=== PATIENT | male | born 1960 | race Caucasian/White ===

== ENCOUNTER 2023-12-09 15:23 | Inpatient (IN) | payer OTHER ==
[~2023-12-09] VITALS: Ht 170.2 cm; Wt 52.8 kg
[~2023-12-09 15:23] MED LIST: ACET500 PO; ALBU2.5V5 INH; B-12500 MC2 PO; CELE100 PO; FOLI1 PO; LISI20 PO; OXYC5 PO; PRED20 PO; STIOLTO RESPIMAT4 G1 INH; TAMS.4ER PO; Vitamin D1000 UNI1 PO; XARELTO20 MG PO; ZESTORETIC 20-1 EACH PO
[2023-12-09] MEDS ORDERED: Ondansetron Odt8 MG MM (15:46)
[2023-12-09 16:14] LABS: Albumin, Blood 2.1 g/dL (3.4-5.0); Albumin/Globulin Ratio 0.8 (0.8-1.8); Bilirubin, Total 0.3 mg/dL (0.1-1.0); Calcium, Blood 7.9 mg/dL (8.5-10.1); Creatinine, Blood 0.79 mg/dL (0.60-1.20); Globulin, Blood 2.8 g/dL (2.2-4.0); Potassium, Blood 3.9 mmol/L (3.5-5.5); Total Protein, Blood 4.9 g/dL (6.4-8.2)
[2023-12-09] MEDS ORDERED: NS 1,000 ML IV SCH (16:30)
[2023-12-09 16:53] LABS: BASOPHILS ABSOLUTE AUTO 0.02 K/mm3 (0.00-0.23); BASOPHILS PERCENT AUTO 0 % (0-2); EOSINOPHILS ABSOLUTE AUTO 0.52 K/mm3 (0.00-0.68); EOSINOPHILS PERCENT AUTO 4 % (0-6); Hematocrit 21.8 % (37.0-53.0); Hemoglobin 7.2 g/dL (13.5-17.5); IMMATURE GRAN ABSOLUTE AUTO 0.09 K/mm3 (0.00-0.10); IMMATURE GRAN PERCENT AUTO 1 % (0-1); LYMPHOCYTES ABSOLUTE AUTO 1.22 K/mm3 (0.84-5.20); LYMPHOCYTES PERCENT AUTO 10 % (21-46); MONOCYTES ABSOLUTE AUTO 2.21 K/mm3 (0.16-1.47); MONOCYTES PERCENT AUTO 18 % (4-13); Mean Corpuscular HGB 34.4 pg (26.0-34.0); Mean Corpuscular Volume 104 fL (80-100); NEUTROPHILS ABSOLUTE AUTO 8.39 K/mm3 (1.96-9.15); NEUTROPHILS PERCENT AUTO 67 % (41-73); RDW Coefficient Variation 14.2 % (11.7-14.2); RDW Standard Deviation 53.8 fL (35.1-46.3); Red Blood Cell Count 2.09 M/mm3 (4.30-5.90); White Blood Cell Count 12.45 K/mm3 (4.00-11.30)
[2023-12-09 17:23] LABS: Mean Platelet Volume 13.3 fL (9.1-12.4)
[2023-12-09 17:24] LABS: Platelet Count 39 K/mm3 (150-400)
[2023-12-09 18:48] LABS: Base Excess Venous 0.4 mmol/L; Bicarbonate Venous 24.6 mmol/L (24.0-30.0); PCO2 Venous 50.1 mmHg (38-42); pH Blood Venous 7.33 (7.34-7.37)
[2023-12-09] MEDS ORDERED: Albuterol 2.5 MG/3 ML VIAL INH ONE (19:00)
[2023-12-09] MEDS ORDERED: Ondansetron HCl 2 MG / ML 2ML Vial IV PRN (19:15)
[2023-12-09] MEDS ORDERED: Albuterol 2.5 MG/3 ML VIAL INH PRN (19:20)
[2023-12-09] MEDS ORDERED: Ipratropium/Albuterol SulF 2.5-0.5MG/3 ML Amp INH SCH (19:20)
[2023-12-09] MEDS ORDERED: Acetaminophen 325 MG TABLET PO PRN (19:20)
[2023-12-09 19:43] LABS: Percent Saturation 8.3 % (20.0-50.0)
[2023-12-09 19:45] LABS: International Normalized Ratio 1.21; Prothrombin Time Results 12.8 Sec (9.7-11.5)
[2023-12-09] MEDS ORDERED: MethylPREDNISolone Sod Succ 125 MG Vial IV SCH (20:00)
[2023-12-09] MEDS ORDERED: Azithromycin 500 MG in NS 250 ML IV SCH (20:00)
[2023-12-09 21:17] VITALS: BP 109/73
[2023-12-09 23:19] LABS: PCO2 Venous 43.3 mmHg (38-42); pH Blood Venous 7.37 (7.34-7.37)
[2023-12-09 23:20] LABS: Base Excess Venous -0.1 mmol/L; Bicarbonate Venous 24.3 mmol/L (24.0-30.0)
[2023-12-09] MEDS ORDERED: ALBU90OI INH (23:46)
[2023-12-09] MEDS ORDERED: DECADRON4 M1 PO (23:48)
[2023-12-10] VITALS (21 sets, daily range): BP systolic 91–122; BP diastolic 66–80
[2023-12-10 04:50] LABS: Hematocrit 24.1 % (37.0-53.0); Hemoglobin 7.7 g/dL (13.5-17.5); Mean Corpuscular HGB 34.7 pg (26.0-34.0); RDW Coefficient Variation 14.3 % (11.7-14.2); RDW Standard Deviation 57.1 fL (35.1-46.3); Red Blood Cell Count 2.22 M/mm3 (4.30-5.90); White Blood Cell Count 9.76 K/mm3 (4.00-11.30)
[2023-12-10 04:54] LABS: Base Excess Venous 1.9 mmol/L; Bicarbonate Venous 26.2 mmol/L (24.0-30.0); PCO2 Venous 32.6 mmHg (38-42)
[2023-12-10 05:02] LABS: Mean Corpuscular Volume 109 fL (80-100)
[2023-12-10 05:04] LABS: Platelet Count 27 K/mm3 (150-400)
[2023-12-10 05:07] LABS: Bun/Creatinine Ratio 35.2 (12.0-20.0); Calcium, Blood 8.2 mg/dL (8.5-10.1); Creatinine, Blood 0.6 mg/dL (0.60-1.20); Potassium, Blood 4.2 mmol/L (3.5-5.5)
--- NOTE | 2023-12-10 06:54 | NUR ---
SHIFT SUMMARY NOC PT A/O X 2-3. FORGETFUL AND CONFUSED AT TIMES, ESPECIALLY WHEN 02 IS REMOVED AND PT DESATS INTO 70'S. PT ON 3L/NC BASELINE, NOW ON 5L/NC TO MAINTAIN SPO2 >92 ON BIOX. ADMIT FROM ED WITH ARF WITH HYPOXIA. PT HAD RECENT PLEUREX CATHETER IN L SIDE THAT PT PULLED WHEN CONFUSED. PT HAS MODERATE L HYDROPNEUMOTHORAX WITH PLEURAL EFFUSION. PT SCEDULED TO HAVE NEW PLEUREX CATHETER PLACED BY DR LANGLEY TODAY AND HAS BEEN NPO SINCE MIDNIGHT IN PREPARATION. PT HAS RECENT DX OF SMALL CELL CARCINOMA LUNG CANCER. PT XARELTO TO BE HELD TODAY FOR PROCEDURE AND SCD'S IN PLACE FOR DVT PROPHYLAXIS. PER ED REPORT PT IS INC OF URINE AND UNSURE OF BM, PT REPORTS NO INCONTINENCE, BUT ATTENDS IN PLACE. PT ALSO HAS ECHO SCHEDULED FOR TODAY. PT CURRENTLY RESTING WITH BED ALARM ON, BED IN LOWEST POSITION AND CALL LIGHT WITHIN REACH.
--- NOTE | 2023-12-10 07:28 | NUR ---
BEGINNING OF SHIFT NOTE: PATIENT A/OX3, IRRIITABLE, AND WANTING TO EAT. PATIENT REPORTS HE HAS NOT EATEN FOR 2 DAYS. PATIENT IS NPO PLAN TO HAVE PLEURIX DRAIN PLACEMENT THIS AM BY DR. LANGLEY. RECEIVED REPORTS FRON NOC RN, BRIDGETT. PER BRIDGETT PATIENT DRANK BLACK COFFEE ABOUT 240 CC AT AROUND 0430. THIS RN NOTIFIED DR. LANGLEY REGARDING THIS CONCERNED. PER DR. LANGLEY CONTINUE TO KEEP PATIENT NPO FOR NOW.
[2023-12-10] MEDS ORDERED: OxyCODONE HCL 5 MG TAB PO SCH (09:00)
[2023-12-10] MEDS ORDERED: Folic Acid 1 MG TAB PO SCH (09:00)
[2023-12-10] MEDS ORDERED: Tamsulosin HCl 0.4 MG Cap PO SCH (09:00)
[2023-12-10 13:19] LABS: U Amphetamine Screen Not Detected; U Barbituate Screen Not Detected; U Benzodiazapine Screen Not Detected; U Buprenorphine Screen Not Detected; U Cannabinoids Screen Not Detected; U Cocaine Screen Not Detected; U Methadone Screen Not Detected; U Methamphetamine Screen Not Detected; U Opiates Screen Not Detected; U Oxycodone Screen DETECTED; U Phencyclidine Screen Not Detected
--- NOTE | 2023-12-10 13:19 | NUR ---
THIS RN PROVIDING BREAK COVERAGE FOR PRIMARY NURSE TODAY.
[2023-12-10] MEDS ORDERED: NS 500 ML IV SCH (14:00)
[2023-12-10] MEDS ORDERED: NS 1,000 ML IV SCH (15:30)
--- NOTE | 2023-12-10 15:43 | NUR ---
NOTES: PATIENT LEFT THE ROOM AT THIS TIME TO DAY SURGERY.
[2023-12-10] MEDS ORDERED: Bupivacaine 0.5% HCl 5 MG/ML 30MLVIAL ONE (15:51)
--- NOTE | 2023-12-10 16:00 | NUR ---
SUPPORTIVE VISIT PT IS KNOWN TO THIS PC RN FROM HIS LAST HOSPITAL ADMISSION. BRYANT IS NOT GIVING CLEAR ANSWERS. UNKNOWN WHAT MONTH, DAY OR TIME OF DAY IT IS. HE KNOWS WHERE HE IS AND WHY HE IS HERE. PT STS, "DINNER SHOULD BE HERE SOON. I HAVEN'T EATEN IN 2 DAYS AND THEY ARE LETTING ME EAT NOW. THEY GOT MAD AT ME FOR HAVING SOME COFFEE THIS MORNING." BRYANT HAD TO BE REMINDED OF HIS UPCOMING PROCEDURE TO REPLACE THE PLUREX DRAIN HE ACCIDENTALLY PULLED OUT. HIS RESPONSE TO REORIENTATION OF PENDING PROCEDURE WAS, "OH YA." BRYANT TALKS ABOUT HIS FIRST TWO DAYS OF CHEMO TX. HE DENIES ADVERSE CHEMO REACTIONS AND NOT SURE WHY HE PULLED THE PLUREX DRAIN TUBE. BRYANT WANTS TO CONTINUE WITH CURRENT TREATMENT PLAN. "I'M NOT READY TO YET." PC TO REMAIN AVAILABLE NEEDED.
--- NOTE | 2023-12-10 16:01 | NUR ---
INTO [facility] VIA GURNEY. HISTORY AND ALLERGIES REVIEWED. LUNGS DIMINISHED T/O LEFT. PT HAD DUONEB JUST PRIOR TO ARRIVAL IN [facility]. PT SOB WITH EXERTION. RR 26-30. SATS>90% ON 2 LITERS NASAL CANULA. NPO STATUS CONFIRMED. PT HAS 1 UNIT PRBC'S TRANSFUSING.
[2023-12-10] MEDS ORDERED: propofoL 20 ML IV ONE (16:11)
[2023-12-10] MEDS ORDERED: Sodium Chloride 0.9% Inj 10 ML IV ONE (16:14)
[2023-12-10] MEDS ORDERED: Ketamine HCl 100 MG / ML 5ML Vial ONE (16:14)
--- NOTE | 2023-12-10 16:15 | NUR ---
RAC #20 PIV INFUSING 1 UNIT PRBCS.HOWEVER, IV SLIGHTLY POSITIONAL.
--- NOTE | 2023-12-10 16:57 | NUR ---
12/10/23 1657 Alana Jones 800ML DRAINED OUT OF PLEURX CATHETER
[2023-12-10] MEDS ORDERED: FentaNYL Citrate 50 MCG/ML 2 ML Injection ONE (17:00)
[2023-12-10 18:52] LABS: BASOPHILS ABSOLUTE AUTO 0.02 K/mm3 (0.00-0.23); BASOPHILS PERCENT AUTO 0 % (0-2); EOSINOPHILS ABSOLUTE AUTO 0.01 K/mm3 (0.00-0.68); EOSINOPHILS PERCENT AUTO 0 % (0-6); IMMATURE GRAN ABSOLUTE AUTO 0.11 K/mm3 (0.00-0.10); IMMATURE GRAN PERCENT AUTO 1 % (0-1); LYMPHOCYTES ABSOLUTE AUTO 0.45 K/mm3 (0.84-5.20); LYMPHOCYTES PERCENT AUTO 4 % (21-46); MONOCYTES ABSOLUTE AUTO 0.53 K/mm3 (0.16-1.47); MONOCYTES PERCENT AUTO 4 % (4-13); NEUTROPHILS ABSOLUTE AUTO 11.48 K/mm3 (1.96-9.15); NEUTROPHILS PERCENT AUTO 91 % (41-73)
--- NOTE | 2023-12-10 19:13 | NUR ---
SHIFT SUMMARY: PATIENT A/X3, CONFUSED TO DATES/TIMES, FORGETFUL, PLEASANT AND COOPERATIVE c CARE. PATIENT HAD ECHO DONE THIS AM c RESULT. PATIENT DENIES CP/PRESSURE, DIZZINESS AND N/V. ON TELE, SR HR IN THE 90'S BPM. PATIENT O2 AT BASELINE 2-3L c SPO2 RANGES 95-100%. PLEURIX CATHETER PLACEMENT TO L SIDE DONE BY DR. LANGLEY. PATIENT BACK IN ROOM VIA GURNEY AT 1755 FROM PACU. RECEIVED REPORT FROM TRISH LI 1 PRBC COMPLETED AT 1715, 800 MLS OF FLUIDS DRAIN FROM PLEURIX CATHETER, DRESSING TO L SIDE HAS A TINY AMT OF BLOOD AND HAS NOT CHANGED, DRESSING INTACT. PATIENT REPORTS SLIGHT DISCOMFORT TO SITE. POST-OP VITALS TAKEN. PIV TO RAC INFUSING IV ABX AT THIS TIME. SCD'S TO BLE'S IN PLACED. BED ALARM ON FOR SAFETY. CALL LIGHT IN REACH.
[2023-12-11 04:03] VITALS: BP 121/71
--- NOTE | 2023-12-11 04:55 | NUR ---
NOC Shift Summary Pt received a new PleruX cath yesterday. Minimal drainage at site remains unchanged since surgery. Mild soreness relieved with tylenol. Pt continues to experience some confusion at times but reorients easily. Needs reminders to keep on continuous monitoring. Bed alarm on at all times: pt does not call before attempting to get up to the bathroom. requiring 2L O2 while awake, 3L O2 with sleep. Pt expresses frustration with still being in the hospital and that he "wants to go home".
[2023-12-11 05:29] LABS: Bun/Creatinine Ratio 38.8 (12.0-20.0); Calcium, Blood 8.4 mg/dL (8.5-10.1); Creatinine, Blood 0.67 mg/dL (0.60-1.20); Potassium, Blood 4.2 mmol/L (3.5-5.5)
[2023-12-11 07:42] VITALS: BP 123/73
[2023-12-11 09:20] LABS: BASOPHILS ABSOLUTE AUTO 0.01 K/mm3 (0.00-0.23); BASOPHILS PERCENT AUTO 0 % (0-2); EOSINOPHILS PERCENT AUTO 0 % (0-6); Hematocrit 26.8 % (37.0-53.0); Hemoglobin 8.9 g/dL (13.5-17.5); IMMATURE GRAN ABSOLUTE AUTO 0.28 K/mm3 (0.00-0.10); IMMATURE GRAN PERCENT AUTO 1 % (0-1); LYMPHOCYTES ABSOLUTE AUTO 0.78 K/mm3 (0.84-5.20); LYMPHOCYTES PERCENT AUTO 4 % (21-46); MONOCYTES ABSOLUTE AUTO 2.51 K/mm3 (0.16-1.47); MONOCYTES PERCENT AUTO 11 % (4-13); Mean Corpuscular HGB 33.2 pg (26.0-34.0); Mean Corpuscular HGB Conc 33.2 g/dL (31.5-36.5); NEUTROPHILS ABSOLUTE AUTO 18.36 K/mm3 (1.96-9.15); NEUTROPHILS PERCENT AUTO 84 % (41-73); RDW Coefficient Variation 19.5 % (11.7-14.2); RDW Standard Deviation 70.2 fL (35.1-46.3); Red Blood Cell Count 2.68 M/mm3 (4.30-5.90); White Blood Cell Count 21.94 K/mm3 (4.00-11.30)
[2023-12-11 09:24] LABS: Mean Corpuscular Volume 100 fL (80-100)
[2023-12-11 09:25] LABS: Platelet Count 20 K/mm3 (150-400)
[2023-12-11] MEDS ORDERED: HyDROXyzine HCl 25 MG Tab PO PRN (11:00)
[2023-12-11 15:45] VITALS: BP 111/81
--- NOTE | 2023-12-11 15:55 | NUR ---
DAYSHIFT SUMMARY Patient alert & oriented x2, disoriented to time/situation. This AM he requested breathing tx, appeared very anxious. He had another episode of anxiety this afternoon, he climbed out of bed, removed O2 NC, and sats dropped. RN able to redirect and get him back in bed, high fowlers positoned O2 NC back on. MD ordered HYdroxyzine for anxiety, PRN effective. IV Solumedrol adminsitred. S/p left pleurex drain, dressing has scant amt of bright red blood, dressing intact. Vitals stable. Will continue plan of care, awaiting discharge planning.
--- NOTE | 2023-12-11 17:16 | NUR ---
MET WITH BRYANT TO ASSESS COMFORT. HE REPORTED THAT HE WAS FEELING BETTER. HE WAS NOT EXPERIENCING MUCH DISCOMFORT, REPORTED HE HAD BEEN SLEEPING AND EATING WELL. I DISCUSSED THIS CASE WITH RT AND WITH BEDSIDE RN WHO REPORTED BRYANT HAD BEEN CONFUSED. I SPOKE WITH WILMA CREWS ON THE PHONE. SHE REPOIRTED THAT HE HAD BEEN INTERMITENTLY CONFUSED AT HOME AND HAD WANDERED OUTSIDE IN THE MIDDLE OF THE NIGHT AND SHE FOUND HIM HUGGING BLACKBERRY BUSHED TO TRY TO KEEP WARM. I PRAISED HER FOR HER DEDICATION TO CARING FOR HIM AND AKNOWLEDGED THE DIFFICULTY OF HER SITUATION. WE DISCUSSED POSSIBLE OUTCOMES FOR BRYANT DURING THIS HOSPITILIZATION. WE ARE AWAITING ONCOLOGY TO VISIT TO HAVE SOME DIRECTION ON HOW TO PROCEED WITH CARE. PATIENTS MOTHER IS OPEN TO HOSPICE IF HE CONTINUES TO DECLINE AND IF THATS WHAT THE CARE TEAM RECOMENDS. I RELAYED THIS TO PROVIDER.
[2023-12-11 20:48] VITALS: BP 115/80
[2023-12-12] MEDS ORDERED: Melatonin 3 MG Tab PO PRN (01:20)
[2023-12-12 05:08] LABS: BASOPHILS ABSOLUTE AUTO 0.03 K/mm3 (0.00-0.23); BASOPHILS PERCENT AUTO 0 % (0-2); EOSINOPHILS ABSOLUTE AUTO 0.37 K/mm3 (0.00-0.68); EOSINOPHILS PERCENT AUTO 2 % (0-6); Hematocrit 26.5 % (37.0-53.0); Hemoglobin 8.7 g/dL (13.5-17.5); IMMATURE GRAN ABSOLUTE AUTO 0.44 K/mm3 (0.00-0.10); IMMATURE GRAN PERCENT AUTO 2 % (0-1); LYMPHOCYTES PERCENT AUTO 8 % (21-46); MONOCYTES ABSOLUTE AUTO 3.54 K/mm3 (0.16-1.47); MONOCYTES PERCENT AUTO 14 % (4-13); Mean Corpuscular HGB 33.3 pg (26.0-34.0); Mean Corpuscular HGB Conc 32.8 g/dL (31.5-36.5); Mean Corpuscular Volume 102 fL (80-100); NEUTROPHILS ABSOLUTE AUTO 18.23 K/mm3 (1.96-9.15); NEUTROPHILS PERCENT AUTO 74 % (41-73); NRBC ABSOLUTE 0.02 K/mm3 (0.00-0.02); NRBC Auto 0.1 /100 WBC (0.0-0.2); RDW Coefficient Variation 18.9 % (11.7-14.2); RDW Standard Deviation 70.5 fL (35.1-46.3); Red Blood Cell Count 2.61 M/mm3 (4.30-5.90); White Blood Cell Count 24.61 K/mm3 (4.00-11.30)
[2023-12-12 05:21] LABS: Platelet Count 21 K/mm3 (150-400)
[2023-12-12 05:28] LABS: Bun/Creatinine Ratio 49.5 (12.0-20.0); Calcium, Blood 8.6 mg/dL (8.5-10.1); Creatinine, Blood 0.55 mg/dL (0.60-1.20); Potassium, Blood 3.9 mmol/L (3.5-5.5)
[2023-12-12 05:44] VITALS: BP 117/79
--- NOTE | 2023-12-12 06:31 | NUR ---
SHIFT SUMMARY: Pt is admitted for CVA with right side weakness and is a limited code. Is alert and able to make most needs known. ADLs have been 2p denies pain or discomfort when asked. Telly reports sinus tach in the 120s with a bundle branch block. Was noted to be agitated with some staff with shift stating that he wanted to go home. Able to be redirected with interactions. One of his comments was he just wanted to be able to sleep. Spoke with MD and was given an order for 3mg melatonin prn at HS.
[2023-12-12 07:24] VITALS: BP 119/85
[2023-12-12] MEDS ORDERED: Furosemide 10 MG / ML 2ML Vial IV ONE (09:40)
[2023-12-12] MEDS ORDERED: CefTRIAXone Sodium 1,000 MG in NS 100 ML IV SCH (09:54)
[2023-12-12 10:29] VITALS: BP 122/79
[2023-12-12 12:04] LABS: Adenovirus Not Detected (NOT DETECT); Bordetella pertussis Not Detected (NOT DETECT); Chlamydophila pneumoniae Not Detected (NOT DETECT); Coronavirus 229E Not Detected (NOT DETECT); Coronavirus HKU1 Not Detected (NOT DETECT); Coronavirus NL63 Not Detected (NOT DETECT); Coronavirus OC43 Not Detected (NOT DETECT); Human Metapneumovirus Not Detected (NOT DETECT); Human Rhinovirus/Enterovirus Not Detected (NOT DETECT); Influenza A/2009-H1 Not Detected (NOT DETECT); Influenza A/H1 Not Detected (NOT DETECT); Influenza A/H3 Not Detected (NOT DETECT); Influenza B Not Detected (NOT DETECT); Mycoplasma pneumoniae Not Detected (NOT DETECT); Parainfluenza Virus 1 Not Detected (NOT DETECT); Parainfluenza Virus 2 Not Detected (NOT DETECT); Parainfluenza Virus 3 Not Detected (NOT DETECT); Parainfluenza Virus 4 Not Detected (NOT DETECT); Respiratory Syncytial Virus Not Detected (NOT DETECT); SARS-Cov-2 (COVID-19), BioFire Not Detected (NOT DETECT)
[2023-12-12 14:32] VITALS: BP 112/76
--- NOTE | 2023-12-12 16:07 | NUR ---
SHIFT SUMMARY: PATIENT A/O TO SELF AND PLACED ONLY, CONFUSED AT TIMES BUT EASILY REDIRECTABLE. PATIENT O2 AT BASELINE 3L VIA NC c SPO2 94-98% WHEN RESTING IN BED, BUT c ACTIVITIES LIKE USES URINAL AT BEDSIDE O2 DROPPED TO LOW 80'S AND BOUNCHED BACK IN THE MID TO HIGH 90'S WHEN BACK IN BED. CONTINUES PULSE AT BEDSIDE. PLEURIX CATHETER TO L SIDE, DRESSING INTACT. PATIENT RECEIVED OT DOSE OF IV LASIX. DR. MORALES (SALES DEPARTMENT SUPERVISOR) CAME AND SAW PATIENT TODAY FOR CONSULT-(SEE DR. MORALES'S NOTE). PATIENT DENIES CP/PRESSURE, N/V AND DIZZINESS, WHEN ASKED T/O SHIFT. PATIENT STILL ON TELE, ST HR RANGES LOW 100'S TO 130'S BPM c ACTIVITIES. PATIENT RECEIVED SCHEDULED MEDS PER EMAR. PATIENT HAD BEDBATH AND LINEN CHANGED TODAY. PATIET USES URINAL AT BEDSIDE c ASSISTANCE. BED ALARM ON. CALL LIGHT IN REACH.
[2023-12-12 19:28] VITALS: BP 101/73
[2023-12-13 03:47] VITALS: BP 110/77
[2023-12-13 05:00] LABS: Hematocrit 26.6 % (37.0-53.0); Hemoglobin 8.7 g/dL (13.5-17.5); Mean Corpuscular HGB 32.8 pg (26.0-34.0); Mean Corpuscular HGB Conc 32.7 g/dL (31.5-36.5); Mean Corpuscular Volume 100 fL (80-100); NRBC ABSOLUTE 0.03 K/mm3 (0.00-0.02); NRBC Auto 0.1 /100 WBC (0.0-0.2); RDW Coefficient Variation 17.7 % (11.7-14.2); RDW Standard Deviation 65.6 fL (35.1-46.3); Red Blood Cell Count 2.65 M/mm3 (4.30-5.90); White Blood Cell Count 21.19 K/mm3 (4.00-11.30)
[2023-12-13 05:03] LABS: Platelet Count 20 K/mm3 (150-400)
[2023-12-13 05:28] LABS: Bun/Creatinine Ratio 42.7 (12.0-20.0); Calcium, Blood 8.5 mg/dL (8.5-10.1); Creatinine, Blood 0.59 mg/dL (0.60-1.20); Potassium, Blood 3.9 mmol/L (3.5-5.5)
[2023-12-13 06:11] LABS: BAND PERCENT MAN 9 % (0-8); BASOPHILS PERCENT MAN 0 % (0-2); EOSINOPHILS ABSOLUTE MAN 0.84 K/mm3 (0.00-0.68); EOSINOPHILS PERCENT MAN 4 % (0-6); LYMPHOCYTES ABSOLUTE MAN 2.54 K/mm3 (0.84-5.20); LYMPHOCYTES PERCENT MAN 12 % (21-46); MONOCYTES ABSOLUTE MAN 2.54 K/mm3 (0.16-1.47); MONOCYTES PERCENT MAN 12 % (4-13); MYELOCYTE ABSOLUTE MAN 0.21 K/mm3 (0.00-0.00); MYELOCYTE PERCENT MAN 1 % (0-0); NEUTROPHILS ABSOLUTE MAN 15.04 K/mm3 (1.96-9.15); SEG NEUTROPHILS PERCENT MAN 62 % (41-73); TOTAL CELLS COUNTED 100
[2023-12-13 07:30] VITALS: BP 106/77
[2023-12-13 14:48] VITALS: BP 134/84
--- NOTE | 2023-12-13 16:33 | NUR ---
PALLIATIVE VISIT BRYANT IS WELCOMING OF PC VISIT. MAJORITY OF VISIT WAS PT ASKING TO GO HOME. 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 I'M NOT SUICIDAL. I'VE BEEN PLAYING THE GAME. I NEED TO GO HOME TO GET BETTER." HE IS TEARFUL WHEN TALKING ABOUT HOME AND FAMILY. "I HAVE A FAMILY YOU KNOW." TABLED DISCUSSION OF CARE GOALS UNTIL TOMORROW 12/14/23 @ 1100, WHEN PT'S MOTHER, KEYLA CAN BE PRESENT.
--- NOTE | 2023-12-13 17:26 | NUR ---
SUMMARY- PT AAOX2 THIS SHIFT-TO SELF AND PLACE ONLY. PT DENIED ANY PAIN THIS SHIFT. PT ON 2-3 L THIS SHIFT. X1 ASSIST TO BEDSIDE FOR URINAL USE.
[2023-12-13 19:15] VITALS: BP 102/67
--- NOTE | 2023-12-13 20:03 | NUR ---
QUITE ANXIOUS, VOICED "I CANT BREATHE". HR IN THE 130'S. O2 PER NC INCREASED TO 3L/MIN PER NC. O2 SATS IN THE 90'S. ANXIETY MAINTENANCE AND OPERATIONS SUPERVISOR, RT NOTIFIED AND PLACED ON TREATMENT - SEE RT NOTATIONS FOR DETAILS. CALL LIGHT IN ERACH. HOB ELEVATED FOR RESP COMFORT. CONT BIOX IN USE. WILL CONT TO MONITOR.
[2023-12-13] MEDS ORDERED: Lactobacil 2-S.Thermo-Bifido 1 1 Cap PO SCH (21:00)
--- NOTE | 2023-12-13 21:19 | NUR ---
RESTING QUIETLY. HR 113, O2 SATS 94%. CALL LIGHT IN REACH. NO NOTED S/S ANXIETY.
[2023-12-14 02:20] VITALS: BP 113/72
--- NOTE | 2023-12-14 03:21 | NUR ---
OUTSIDE CONTRACTOR SALES SUMMARY HR ELEVATED, RESPS WERE RAPID, OTHERWISE VSS. HERE FOR ACUTE RESP FAILURE, LUNG SOUNDS DIMINISHED TO AUSCULTATION AND FAIRLY RAPID AND SHALLOW. VOICED HAVING DIFFICULTIES BREATHING AT SHIFT COMMENCE, ANXIETY MED GIVEN, RT NOTIFIED AND TREATMENT ADMINISTERED. MEDS EFFECTIVE, CALMED, RESPS DECREASED TO WNL, CONT BIOX - SATS REMAIN OVER 90% WITH O2 PER NC BETWEEN 2 AND 3 L/NC. VERBALIZED FELT BETTER POST TREATMENTS AND HAS BEEN RESTING QUIELTY WITH OCCASIONAL INTERRUPTIONS SINCE. ABLE TO REPOSITION SELF IN BED WITHOUT ASSIST. CALL LIGHT IN REACH, RAILS UP X 2 AND BED IN LOW POSITION FOR SAFETY. WILL CONTINUE TO MONITOR
[2023-12-14 04:53] LABS: BASOPHILS ABSOLUTE AUTO 0.07 K/mm3 (0.00-0.23); BASOPHILS PERCENT AUTO 0 % (0-2); EOSINOPHILS ABSOLUTE AUTO 0.61 K/mm3 (0.00-0.68); EOSINOPHILS PERCENT AUTO 3 % (0-6); Hematocrit 26.6 % (37.0-53.0); Hemoglobin 8.8 g/dL (13.5-17.5); IMMATURE GRAN ABSOLUTE AUTO 0.51 K/mm3 (0.00-0.10); IMMATURE GRAN PERCENT AUTO 2 % (0-1); LYMPHOCYTES PERCENT AUTO 8 % (21-46); MONOCYTES ABSOLUTE AUTO 2.76 K/mm3 (0.16-1.47); MONOCYTES PERCENT AUTO 12 % (4-13); Mean Corpuscular HGB 33.5 pg (26.0-34.0); Mean Corpuscular HGB Conc 33.1 g/dL (31.5-36.5); Mean Corpuscular Volume 101 fL (80-100); NEUTROPHILS ABSOLUTE AUTO 17.86 K/mm3 (1.96-9.15); NEUTROPHILS PERCENT AUTO 75 % (41-73); NRBC ABSOLUTE 0.02 K/mm3 (0.00-0.02); NRBC Auto 0.1 /100 WBC (0.0-0.2); RDW Coefficient Variation 16.9 % (11.7-14.2); RDW Standard Deviation 62.8 fL (35.1-46.3); Red Blood Cell Count 2.63 M/mm3 (4.30-5.90); White Blood Cell Count 23.81 K/mm3 (4.00-11.30)
[2023-12-14 05:02] LABS: Platelet Count 28 K/mm3 (150-400)
[2023-12-14 05:14] LABS: Bun/Creatinine Ratio 47.8 (12.0-20.0); Calcium, Blood 8.6 mg/dL (8.5-10.1); Creatinine, Blood 0.57 mg/dL (0.60-1.20)
[2023-12-14 07:55] VITALS: BP 103/74
[2023-12-14] MEDS ORDERED: Furosemide 10 MG / ML 2ML Vial IV SCH (09:00)
--- NOTE | 2023-12-14 13:03 | NUR ---
GOALS OF CARE MET WITH PT AND HIS MOTHER, KEYLA THIS MORNING. BRYANT WAS SLEEPING, SITTING UPRIGHT IN HOSPITAL BED WITH NEBULIZER MASK IN PLACE. WHEN RT REMOVED MASK, PT STARTLED AWAKE. BRYANT WAS VISIBLY EXCITED TO SEE HIS MOM. BRYANT IS RESERVED WHEN ASKED ABOUT HIS CARE AND HEALTH CARE GOALS. KEYLA IS VERY REALISTIC WITH BRYANT'S CURRENT DX. SHE EXPRESSES CONCERN RE: SAFTEY AT HOME FOR BRYANT. KEYLA REPORTS PT RECENTLY GOT IN THE [place] ON THEIR PROPERTY, WAS CONFUSED, THEN TRIED WRAPPING UP IN BLACKBERRY BUSHES TO GET WARM. GOT IS HIS PICK-UP TO DRIVE, MADE IT 50 [address] BEFORE HITTING A TREE. ADDITIONALLY, KEYLA REPORTS BRYANT HAS 3 LOADED GUNS ON HIS HEADBOARD. WHEN ATTEMPTING TO GO TO HIS BEDROOM HE GOT SIDE TRACKED, OPENED THE LINEN CLOSET TO USE THE BATHROOM. BRYANT HAS BECOME IMPULSIVE. PRIOR TO BRYANT'S NEW CANCER DX AND ADMISSION IN NOVEMBER, HE WAS A/O X4. INDEPENDENT IN ALL ADLS/IADLS. PROVIDING MAINTENANCE ON FAMILY PROPERTY, CHORES, CARING FOR HIS MOM, SHOPPING, PAYING BILLS, ECT. BRYANT IS A [employer] OF 20 YEARS WITH MANY DEPLOYMENTS. BRYANT AND KEYLA ARE IN AGREEMENT FOR BRYANT TO BE PLACED AT THE [facility]. HE WANTS TO CONTINUE ABX TX WHILE IN THE HOSPITAL. MARLA CALVILLO FILLED OUT, PENDING PROVIDER SIGNATURE. PRIMARY RN, CARE MANAGMENT AND PROVIDER UPDATED. PC TO REMAIN AVAILABLE.
[2023-12-14 16:41] VITALS: BP 91/67
[2023-12-14 16:42] VITALS: BP 91/67
--- NOTE | 2023-12-14 18:38 | NUR ---
1715- PT'S LEFT PLEURX DRAIN DRAINED THIS SHIFT. 650ML OF BLOODY FLUID REMOVED. PT AAOX2. X1 ASSIST. PT ON 3L NC CONTINUOUS. PT DENIED PAIN THIS SHIFT.
[2023-12-14 19:20] VITALS: BP 99/69
[2023-12-15] MEDS ORDERED: QUEtiapine Fumarate 25 MG Tab PO SCH (02:20)
[2023-12-15] MEDS ORDERED: Melatonin 5 MG Tablet PO SCH (02:20)
[2023-12-15 03:14] VITALS: BP 99/71
--- NOTE | 2023-12-15 03:42 | NUR ---
SHIFT SUMMARY 63 YR M ADMITTED ON 12/09/23. DNR. PT HAS HAD SEVERAL EPISODES OF INCREASED CONFUSION THIS SHIFT. HE GOT ON HIS HANDS AND KNEES IN HIS BED AND STATED THAT HE WAS TRYING TO TURN THE LIGHT OFF. HE ALSO GOT OUT OF BED A COUPLE OF TIMES, DISROBED, AND URINATED ON THE FLOOR AND BED. HE C/O PAIN AT HIS PLEUREX DRAIN SITE, WHICH WAS DRAINED TODAY. HOSPITALIST WAS NOTIFIED AND ORDER WAS PUT IN FOR 5MG MELATONIN AND 12.5MG SEROQUEL. PT ALSO C/O DIFFICULTY BREATHING AND HIS NC WAS NOTED TO BE ON HIS CHIN OR EYES AND HIS O2 SATS DROPPED TO UPPER 80'S BUT QUICKLY CAME BACK UP TO NORMAL WHEN NC WAS PUT BACK IN HIS NOSE. HE IS CURRENTLY RESTING PEACEFULLY WITH BED IN LOW POSITION AND ALARM ON. WITH BED IN LOW POSITION AND ALARM ON.
[2023-12-15 05:15] LABS: Hematocrit 26.2 % (37.0-53.0); Hemoglobin 8.5 g/dL (13.5-17.5); Mean Corpuscular HGB 32.8 pg (26.0-34.0); Mean Corpuscular HGB Conc 32.4 g/dL (31.5-36.5); Mean Corpuscular Volume 101 fL (80-100); RDW Coefficient Variation 16.4 % (11.7-14.2); RDW Standard Deviation 61.2 fL (35.1-46.3); Red Blood Cell Count 2.59 M/mm3 (4.30-5.90); White Blood Cell Count 24.97 K/mm3 (4.00-11.30)
[2023-12-15 05:25] LABS: Platelet Count 37 K/mm3 (150-400)
[2023-12-15 05:43] LABS: Bun/Creatinine Ratio 55.7 (12.0-20.0); Calcium, Blood 8.4 mg/dL (8.5-10.1); Creatinine, Blood 0.52 mg/dL (0.60-1.20); Potassium, Blood 3.9 mmol/L (3.5-5.5)
[2023-12-15 05:50] LABS: BAND PERCENT MAN 8 % (0-8); BASOPHILS PERCENT MAN 0 % (0-2); EOSINOPHILS ABSOLUTE MAN 0.24 K/mm3 (0.00-0.68); EOSINOPHILS PERCENT MAN 1 % (0-6); LYMPHOCYTES % ATYPICAL MANUAL 1 % (0-0); LYMPHOCYTES ABSOLUTE MAN 1.74 K/mm3 (0.84-5.20); LYMPHOCYTES PERCENT MAN 6 % (21-46); MONOCYTES ABSOLUTE MAN 1.99 K/mm3 (0.16-1.47); MONOCYTES PERCENT MAN 8 % (4-13); NEUTROPHILS ABSOLUTE MAN 20.97 K/mm3 (1.96-9.15); SEG NEUTROPHILS PERCENT MAN 76 % (41-73); TOTAL CELLS COUNTED 100
[2023-12-15 07:48] VITALS: BP 107/72
--- NOTE | 2023-12-15 13:47 | NUR ---
MET WITH PT AND HIS MOTHER THIS AFTERNOON. BRYANT IS MORE ALERT TODAY THAN YESTERDAY AND PARTICIPATING IN CONVERSATION. PT IS ALERT, ORIENTED TO SELF, FAMILY AND BEING IN A HOSPITAL (DOENS'T KNOW WHAT HOSPITAL OR TOWN). PLAN OF CARE ON DISCHARGE IS HOSPICE CARE. BRYANT WILL NOT BE PURSUING FURTHER CANCER TREATMENTS, CONFIRMED WITH PT'S MOTHER. PLUREX IN PLACE, LEFT SIDE. PLUREX MANAGEMENT FOR COMFORT. PT REMAINS ON 2L O2 VIA NC. RESPIRATIONS HEAVY, EVEN BILAT. PC TO REMAIN AVAILABLE NEEDED.
[2023-12-15 16:43] VITALS: BP 103/71
--- NOTE | 2023-12-15 18:10 | NUR ---
SUMMARY- AAOX2 THIS SHIFT TO SELF AND PLACE. PT HAS BEEN ON 2L NC CONTINUOUS. PT DID COMPLAIN OF MINIMAL L RIB PAIN THIS MORNING, WHICH WAS RELIEVED BY HIS SCHEDULED OXY THIS AM. BEDREST MOST OF THE SHIFT, UNLESS PT NEEDED TO STAND UP AT BEDSIDE TO USE HIS URINAL. PT WAS MODERATELY ANXIOUS THIS AM, WHICH WAS RELIEVED BY ATARAX.
[2023-12-15 19:38] VITALS: BP 99/70
[2023-12-16 04:25] VITALS: BP 115/78
--- NOTE | 2023-12-16 05:30 | NUR ---
SHIFT SUMMARY. PATIENT IS AOX2-SELF AND PERSON. PATIENT CONFUSED THIS SHIFT. PATIENT NOT USING HIS CALL LIGHT APPROPRIATELY. PATIENT ANXIOUS THIS SHIFT; MEDICATED PER EMAR WITH ATARAX WITH SOME IMPROVEMENT TO ANXIETY. PATIENT REPORTS NOT BEING ABLE TO SLEEP WELL TONIGHT-PATIENT RECIEVED BOTH SCHEDULED MELATONIN AND PRN MELATONIN-WILL RELAY TO DAYSHIFT RN. PATIENT REMOVING HIS OXYGEN MULTIPLE TIMES THIS SHIFT. PATIENT SATTING >92% ON 2L'S VIA NASAL CANNULA. PATIENT IMPULSIVE THIS SHIFT UP SEVERAL TIMES W/O USING HIS CALL LIGHT-BED EXIT ENGAGED FOR PATIENT SAFETY. BED IS LOCKED IN THE LOWEST POSITION WITH CALL LIGHT IN REACH. CARE IS ONGOING.
[2023-12-16 07:22] VITALS: BP 103/74
--- NOTE | 2023-12-16 16:26 | NUR ---
SUPPORTIVE VISIT ATTEMPTED SUPPORTIVE VISIT THIS AFTERNOON. BRYANT APPEARED TO BE SOUND ASLEEP. PC WILL REMAIN AVAILABLE NEEDED.
[2023-12-16 17:01] VITALS: BP 113/72
--- NOTE | 2023-12-16 17:53 | NUR ---
SUMMARY- PT AAOX2-3 THIS SHIFT. PT INTERMITTENTLY ANXIOUS, WHICH WAS RELIEVED BY ATARAX. PT DENIED PAIN THIS SHIFT. SBA-X1 WITH STANDING TO USE THE URINAL. PT ON 2L NC CONTINUOUSLY. PT VERBALIZING HIS READINESS FOR HOSPICE MULTIPLE TIMES THIS SHIFT. PT CALLED HIS MOTHER AND INFORMED HER WELL.
[2023-12-16 19:38] VITALS: BP 99/69
[2023-12-16] MEDS ORDERED: LORazepam 1 MG Tab PO PRN (19:55)
[2023-12-16] MEDS ORDERED: Bisacodyl 10 MG Supp PR PRN (21:30)
[2023-12-16] MEDS ORDERED: Magnesium Hydroxide Conc 10 ML UDC PO PRN (21:30)
--- NOTE | 2023-12-17 04:54 | NUR ---
SHIFT SUMMARY PATIENT A&OX2-3 WITH CONFUSION TONIGHT. PATIENT DID NOT SLEEP MUCH TONIGHT. PATIENT AWAKE AND ANXIOUS OFF AND ON T/O SHIFT THAT DID NOT IMPROVE WITH ATARAX. PATIENT GIVEN ATIVAN-ATIVAN APPEARED TO INCREASE PATIENTS ANXIETY. PATIENT IS READY TO GO TO [facility] AND MOVE FORWARD WITH HOSPICE PER PATIENT. BED IS LOCKED IN THE LOWEST POSITION WITH CALL LIGHT IN REACH. BED EXIT ALARM ENGAGED FOR SAFETY. CARE IS ONGOING.
[2023-12-17 07:47] VITALS: BP 116/79
[2023-12-17] MEDS ORDERED: Docusate Sodium 100 MG Cap PO SCH (09:00)
[2023-12-17] MEDS ORDERED: Sennosides 8.6 MG Tab PO SCH (09:00)
[2023-12-17] MEDS ORDERED: Scopolamine Hydrobromide Patch TOP PRN (11:30)
[2023-12-17] MEDS ORDERED: Atropine Sulfate 1% Opth Soln 2ML BTL SL PRN (11:30)
[2023-12-17] MEDS ORDERED: Morphine Sulfate 20 MG/1ML 1 ML Oral Syringe SL PRN (11:30)
--- NOTE | 2023-12-17 16:44 | NUR ---
MET WITH PATIENT HE REPORTED THAT HE WAS HAVING SOME SHORTNESS OF BREATH. DISCUSSED WITH PROVIDER AND BEDSIDE RN. SPOKE WITH PATIENT MOM AND PROVIDER WILL LEAVE ABX ON AND ADD COMFORT MEASURES TO HELP WITH AIR HUNGER. PATIENT IS PENDING DISCHARGE WITH HOSPICE
--- NOTE | 2023-12-17 17:33 | NUR ---
SHIFT SUMMARY PT ON COMFORT CARE. PT A&OX2-3, ON 2L O2 NC, SBA, CONT/INCONT, POOR PO INTAKE, VOIDING, AND PAIN MANAGED PER EMAR. PT ANXIOUS AND MEDICATED X2. AFTER ADMINISTRATION, PT APPEARED TO REST COMFORTABLY. CALL LIGHT WITHIN REACH.
--- NOTE | 2023-12-18 04:36 | NUR ---
SHIFT SUMMARY. PATIENT MORE ALERT TONIGHT THAN PREVIOUS NIGHT. PATIENT NEEDING REMINDED TO KEEP OXYGEN ON-WILL REMOVE AT TIMES TO TALK. PATIENT SLEPT FOR 4-5HOURS TONIGHT. P[ATIENT IS ON COMFORT CARE. MEDICATED FOR PAIN AND ANXIETY PER EMAR X1. PLAN FOR PATIENT TO DISCHARGE TO THE [facility] ON HOSPICE POSSIBLY WEDNESDAY. BED IS LOCKED IN THE LOWEST POSITION WITH CALL LIGHT IN REACH. CARE IS ONGOING.
--- NOTE | 2023-12-18 17:25 | NUR ---
SHIFT SUMMARY PT ON COMFORT CARE. PT A&OX2-3 FORGETFUL AND CONFUSED AT TIMES, ON 5L O2 NC, SBA, CONT/INCONT, POOR PO INTAKE, AND VOIDING. PT MEDICATED PER EMAR W/ ROXANOL AND ATARAX. PT APPEARED TO REST COMFORTABLY T/O SHIFT. CALL LIGHT WITHIN REACH AND BED/CHAIR ALARM ON.
--- NOTE | 2023-12-19 04:44 | NUR ---
COMFORT CARE. A&O 2/3 FORGETFUL ANXIOUS AND PREOCCUPIED WITH PHYSIOLOGICAL NEEDS. PT SOB W/ AIR HUNGER FREQUENTLY THROUGHOUT SHIFT. ROXONAL 20 MG ADMIN SEE EMAR. NC IN PLACE 5L. BRIEF CHANGED D/T PT CONSISTENT MOBILITY NO EPISODES OF INCONTINENCE. PT SETS OFF BED AND CHAIR ALARM TRANSFERRING SELF, NOT CALL LIGHT APPROPRIATE. PT NOT REDIRECTABLE WHEN PREOCCUPIED WITH SOB HOWEVER FOLLOWS INSTRUCTIONS. BED LOCKED AND LOW. SAFETY PRECAUTION SOCKS IN PLACE.
--- NOTE | 2023-12-19 17:51 | NUR ---
SHIFT SUMMARY PT IS ON COMFORT CARE. NO ACUTE CHANGES THIS SHIFT. PAIN, ANXIETY, AND AIR HUNGER MEDICATED PER EMAR. CALL LIGHT WITHIN REACH AND PT ABLE TO MAKE NEEDS KNOWN.
--- NOTE | 2023-12-19 21:35 | NUR ---
TOOK OVER CARE WHEN PRIMARY NURSE TOOK HIS BREAK. PT DENIES NEEDS AT THIS TIME.
--- NOTE | 2023-12-20 00:46 | NUR ---
ASSUMED CARE OF PT WHEN PRIMARY NURSE WENT TO BREAK. PT DENIES NEEDS AT THIS TIME. CALL LIGHT WITHIN REACH.
--- NOTE | 2023-12-20 04:15 | NUR ---
ASSUMED CARE OF PT WHILE PRIMARY RN ON BREAK. PT DENIES NEEDS AT THIS TIME. CALL LIGHT WITHIN REACH.
--- NOTE | 2023-12-20 07:37 | NUR ---
SHIFT SUMMARY PT IS ON COMFORT CARE. ALERT AND ORIENTED TO HIS NAME ONLY, UNABLE TO GIVE ME CORRECT BIRTHDAY. TOLERATING A SOFT & BITE SIZE DIET. TAKES HIS PILLS WHOLE/CRUSHED IN APPLESAUCE. PT USES URINAL TO VOID, INCONTINENT AT TIMES, BRIEF IN PLACE. NO BM THIS SHIFT. C/O PAIN EVERYWHERE. GETS EXTREMELY ANXIOUS R/T AIR HUNGER. PT ON 5L NC FOR COMFORT, BUT REMOVES IN HIS SLEEP. MEDICATED PER EMAR TO MAKE PATIENT COMFORTABLE. BED IN LOWEST POSITION, CALL LIGHT WITHIN REACH. BED ALARM SET FOR PT'S SAFETY. PT DOES NOT USE CALL LIGHT APPROPRIATELY.
[2023-12-20] MEDS ORDERED: ATROPINE SULFATE2 M1 SL (10:17)
[2023-12-20] MEDS ORDERED: BISA10S PR (10:18)
[2023-12-20] MEDS ORDERED: DOCU100 PO (10:18)
[2023-12-20] MEDS ORDERED: Ativan1 MG PO (10:19)
[2023-12-20] MEDS ORDERED: MORP20L PO (10:21)
[2023-12-20] MEDS ORDERED: QUET25 PO (10:21)
[2023-12-20] MEDS ORDERED: TRANSDERM-SCOP1 EA10 TD (10:22)
--- NOTE | 2023-12-20 10:52 | NUR ---
REPORT GIVEN TO ME-[facility] REPORT GIVEN TO ME NURSE KEE. ALL QUESTIONS ANSWERED.
--- NOTE | 2023-12-20 13:40 | NUR ---
1320-DC PT DC TO [facility]. PT LEFT WITH ALL BELONGINGS. X1 PLEURX DRAIN KIT SENT WITH AMBULANCE CREW PER REQUEST FROM [facility] NURSE. MOTHER OF PT LEFT WITH PT WELL. PT ON 5L OXYGEN.
== END 2023-12-20 13:32 | disposition hospice, home (50) | DRG 180 ==
LOC: ER 15:23 → MEDS 19:14
PROVIDERS: Emergency Medicine; Family Medicine; Internal Medicine; Nurse Practitioner Acute Care; Student in an Organized Health Care Education/Training Program; Surgery; ADMIT Internal Medicine
PROC: 30233N1 Transfusion of Nonautologous Red Blood Cells into Peripheral Vein, Percutaneous Approach (ICD-10-PCS; 2023-12-09)
PROC: 0W9B30Z Drainage of Left Pleural Cavity with Drainage Device, Percutaneous Approach (ICD-10-PCS; principal; 2023-12-10 14:00)
DX: C34.02 Malignant neoplasm of left main bronchus (principal); I26.99 Other pulmonary embolism without acute cor pulmonale; I50.31 Acute diastolic (congestive) heart failure; J96.21 Acute and chronic respiratory failure with hypoxia; J44.1 Chronic obstructive pulmonary disease with (acute) exacerbation; J91.0 Malignant pleural effusion; J94.8 Other specified pleural conditions; Z51.5 Encounter for palliative care; Z66 Do not resuscitate; I24.89 Other forms of acute ischemic heart disease; E87.29 Other acidosis; N40.0 Benign prostatic hyperplasia without lower urinary tract symptoms; D72.829 Elevated white blood cell count, unspecified; I34.0 Nonrheumatic mitral (valve) insufficiency; D69.6 Thrombocytopenia, unspecified; I95.9 Hypotension, unspecified; I11.0 Hypertensive heart disease with heart failure; D53.9 Nutritional anemia, unspecified; Z79.899 Other long term (current) drug therapy; Z79.51 Long term (current) use of inhaled steroids; Z91.010 Allergy to peanuts; Z79.01 Long term (current) use of anticoagulants; Z98.890 Other specified postprocedural states; Z87.891 Personal history of nicotine dependence
CPT/HCPCS: 0202U; 36415; 36430; 70470; 71045; 71046; 71260; 80048; 80053; 82378; 82607; 82728; 82746; 82803; 83540; 83550; 83605; 83880; 84145; 84484; 85025; 85027; 85060; 85610; 86850; 86900; 86901; 86923; 87040; 88184; 88185; 93005; 93010; 93306; 93970; 94640; 94664; 94762; 96361; 96374-59; 96375-59; 99285-25; A9270; C1729; J0456; J0696; J1940; J2704; J2919; J3010; J7030; J7040; J7050; P9016; Q9967